=== PATIENT | male | born 2000 | race African-American/Black ===

== ENCOUNTER 2023-08-03 21:26 | Emergency (ER) | payer OTHER ==
[2023-08-03] MEDS ORDERED: Boostrix 0.5 ML (Tdap) VIAL (>/=7 yrs of age) ONE (22:11)
[2023-08-03] MEDS ORDERED: Lidocaine 1% PF 5 ML VIAL ONE (22:11)
[2023-08-03] MEDS ORDERED: Clindamycin/D5W 900 MG in Premix Bag 1 BAG IVPB SCH (22:30)
== END 2023-08-04 00:47 | disposition short-term general hospital (02) ==
LOC: ERS 21:26
DX: M71.021 Abscess of bursa, right elbow (principal); L03.113 Cellulitis of right upper limb; Z23 Encounter for immunization
CPT/HCPCS: 23930; 90471; 90715; 96374; J3490

== ENCOUNTER 2023-08-06 20:00 | Emergency (ER) | payer OTHER ==
[2023-08-06 20:56] LABS: #Eosinphils 0.2 thou/uL (0.0-0.7); #Monocytes 0.7 thou/uL (0.11-0.59); #Neutrophils 3.7 thou/uL (1.40-6.50); %Basophils 0.5 % (0.0-1.0); %Eosinophils 2.4 % (0.0-10.0); %Lymphocytes 25.9 % (21.0-51.0); %Monocytes 11.1 % (0.0-10.0); %Neutrophils 59.8 % (42.0-75.0); Hemoglobin 14.2 g/dL (14.0-18.0); Mean Corpuscular Hemoglobin 29.4 pg (27.0-31.0); Mean Platelet Volume 8.7 fL (7.4-10.4); Platelet Count 210 10x3/uL (130-400); RBC Distribution Width 12.8 % (11.5-14.5); Red Blood Cell (RBC) Count 4.83 mill/uL (4.70-6.10); White Blood Cell (WBC) Count 6.2 10x3/uL (4.8-10.8)
[2023-08-06 21:19] LABS: ALT (SGPT) 20 U/L (8-55); AST (SGOT) 17 U/L (5-34); Alkaline Phosphatase 43 U/L (40-110); Anion Gap 12 mmol/L (10-20); BUN (Urea Nitrogen) 16 mg/dL (8.9-20.6); Bilirubin, Total 0.3 mg/dL (0.2-1.2); Calc. Creatinine Clearance 0 mL/min (70-130); Calcium 9.8 mg/dL (7.8-10.44); Carbon Dioxide 26 mmol/L (22-29); Chloride 103 mmol/L (98-107); Estimated GFR 100; Globulin 3.9 g/dL (2.4-3.5); Glucose 87 mg/dL (70-105); Protein, Total 7.9 g/dL (6.0-8.3); Sodium 137 mmol/L (136-145)
[2023-08-06] MEDS ORDERED: Cefepime 2 GM VIAL ONE (21:54)
== END 2023-08-06 23:19 | disposition home or self-care (01) ==
LOC: ERS 20:00
DX: L03.113 Cellulitis of right upper limb (principal)
CPT/HCPCS: 36415; 80053; 83605; 85025; 86140; 87040; 87070; 87077; 87186; 87205; 96365; J0692

== ENCOUNTER 2023-08-13 20:25 | Emergency (ER) | payer OTHER ==
[2023-08-13 21:59] LABS: SARS-CoV-2 NAA Rapid Test DETECTED (NotDetected)
== END 2023-08-13 22:05 | disposition home or self-care (01) ==
LOC: ERS 20:25
DX: B34.9 Viral infection, unspecified (principal); Z20.822 Contact with and (suspected) exposure to COVID-19
CPT/HCPCS: 99283